=== PATIENT | male | born 1960 | race Two or more races ===

== ENCOUNTER 2024-07-20 09:19 | Outpatient (AMB) | payer MEDICAID, SELFPAY ==
[2024-07-20 10:06] VITALS: BP 127/83; PULSE 62; RESP 19; TEMP 36.6; O2SAT 97; BMI 43.0
--- NOTE | 2024-07-20 10:06 | ORTHONT_ITS ---
Vital signs 07/20/24 10:06 Height 1.75 m Height Method Stated Weight 131.995 kg Weight Measurement Method Standing Scale BMI 43.0 BP 127/83 Blood Pressure Source Automatic Cuff Blood Pressure Location Left Upper Arm Position Sitting Respiration 19 Pulse 62 Pulse Source Monitor Temp 97.8 F Temp Source Temporal Artery Scan Pulse Oximetry (%) 97 Oxygen Delivery Method Room Air Med/Allergies Allergies & Medications Allergies No Known Allergies Allergy (Verified 07/20/24 10:10) Medication Reconciliation atorvastatin 10 mg tablet 10 mg PO QDAY 07/20/24 [History Confirmed 07/20/24] cholecalciferol (vitamin D3) 10 mcg (400 unit) capsule 10 mcg PO QDAY 07/20/24 [History Confirmed 07/20/24] meloxicam 7.5 mg tablet 7.5 mg PO QDAY #45 tabs 07/20/24 [Rx] Exam Exam Patient is in no acute distress and is cooperative with the examination today. Breathing is nonlabored. Patient has a normal mood and affect. Bilateral extremities were evaluated and demonstrates sensation intact to light touch. Palpable pedal pulses are present. No significant edema is present. Bilateral hips were examined. The patient has no pain with log roll of the hips. Internal rotation to 30 degrees and external rotation to 30 degrees is painless. Negative FADIR. Right knee was examined today. The right knee is in reasonable alignment. Range of motion from 0-120 degrees. Knee is stable to varus and valgus as well as AP translation with <5mm. Patient has a negative McMurrays. There is no pain with patellofemoral compression and no crepitus noted. The knee is nontender to palpation. Left knee was examined today. The left knee is in varus alignment. Range of motion from 0-115 degrees. Knee is stable to varus and valgus as well as AP translation with <5mm. Patient has a negative McMurrays. There is no pain with patellofemoral compression and no crepitus noted. The knee is tender to palpation medially. We tried to open his disc. It was empty Assessment and Plan Problem List (1) Arthritis of left knee: Status: Acute Plan: Patient is a 63-year-old male with varus deformity and left knee arthritis. We discussed nonoperative and operative options. He reports that he is doing reasonably well right now. We will need to get x-rays to see what his knee looks like. I do suspect he has severe arthritis and varus deformity. We will see him back after his x-rays are done for possible injections versus continued conservative treatment. We sent him a prescription for meloxicam Office Procedures GNS Level of Care Nursing/Assessment Patient Status: Initial/New Patient Nursing Assessment/Reassesment: Medication Reconciliation, Update PMH in EMR and Vital Signs Coordination of Care: Complex Care and Chronic Disease 1-5, Education Complex Pt/Fam, Consent,records obtained, informed consent, 1 Ins Authorization, Lab and Imaging orders, Results/Orders obtained and Staff clarify orders New Patient Charge New Patient Point Assignment: 1124 New Patient Point Charge: REFRIGERATING TECHNICIAN Level 4 ([id number]) MA Intake Visit Data Collection New Patient or Established: New Patient (never been to [facility] [place]) Reason for Visit:: LEFT KNEE PAIN Seen by Clinical Staff ONLY (RN/MA): No Software Licensing Executive Required: No PCP or OBGYN visit in last 3 months: Yes Hx Now: No Do You Feel Safe at Home: Yes Authorities Contacted: N/A Questionairres Past Medical History Past Medical History Have you ever been diagnosed with any of the following: Cardiology Problems Hypercholesterolemia: Yes Subjective Visit Visit for: new patient and knee (LEFT) Immunization / Flu Flu Vaccine in the Last 12 Months: No Flu Vaccine Exclusion Criteria: Refused by Patient History of Present Illness Chief complaint: Left knee pain Randy is a 63-year-old male with left knee pain. The pain has been ongoing for several years.He has not had any injections Or anti-inflammatories. 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 The pain is on the medial aspect of the knee Pain Pain level (0-10): 8 Pain duration: ON AND OFF Pain location: inside (medial) Pain quality: sharp and dull Pain timing: night, increases with activity and stairs Associated signs & symptoms: numbness and other (specify) (TINGLING) Ambulatory data Ambulatory device: none Treatments Improvement with previous injections: No Number of Physical Therapy sessions: 12 Improvement with PT: No Improvement with NSAIDS: no Review of Systems Review of Systems: All systems negative unless otherwise noted in HPI.
== END 2024-07-20 10:35 | disposition home or self-care (01) ==
LOC: HODSRG 09:19
PROVIDERS: PCP Physician Assistant; Referring Provider Physician Assistant; Supervising Provider Orthopaedic Surgery Adult Reconstructive Orthopaedic Surgery; Visit Provider Orthopaedic Surgery Adult Reconstructive Orthopaedic Surgery
DX: M17.12 Unilateral primary osteoarthritis, left knee (principal); M21.162 Varus deformity, not elsewhere classified, left knee; E78.00 Pure hypercholesterolemia, unspecified
CPT/HCPCS: 99204; G0463

== ENCOUNTER → 2024-07-20 | Outpatient (CLI) | payer MEDICAID, SELFPAY ==
--- NOTE | 2024-07-20 | XR_ITS ---
Examination: Left knee 4 views TECHNIQUE: AP oblique lateral axial left knee 4 views Exam date and time: July 20, 2024 1234 hours INDICATIONS: Left knee pain beginning 6 months ago. FINDINGS: Advanced tricompartment osteoarthritis Severe narrowing [id number] medial joint space Small knee effusion No fracture No patellar dislocation IMPRESSION: Advanced tricompartment osteoarthritis Severe narrowing, [id number], medial joint space
== END | disposition home or self-care (01) ==
PROVIDERS: Referring Provider Orthopaedic Surgery Adult Reconstructive Orthopaedic Surgery; Visit Provider Orthopaedic Surgery Adult Reconstructive Orthopaedic Surgery
DX: M17.12 Unilateral primary osteoarthritis, left knee (principal); M25.862 Other specified joint disorders, left knee
CPT/HCPCS: 73564

== ENCOUNTER 2024-08-10 08:07 | Outpatient (AMB) | payer MEDICAID, SELFPAY ==
[2024-08-10 08:22] VITALS: BP 132/81; PULSE 66; RESP 18; TEMP 36.4; O2SAT 95; BMI 42.6
--- NOTE | 2024-08-10 08:22 | ORTHONT_ITS ---
Vital signs 08/10/24 08:22 Height 1.75 m Height Method Stated Weight 130.663 kg Weight Measurement Method Standing Scale BMI 42.6 BP 132/81 H Blood Pressure Source Automatic Cuff Blood Pressure Location Left Upper Arm Position Sitting Respiration 18 Pulse 66 Pulse Source Monitor Temp 97.6 F Temp Source Temporal Artery Scan Pulse Oximetry (%) 95 Oxygen Delivery Method Room Air Med/Allergies Allergies & Medications Allergies No Known Allergies Allergy (Verified 08/10/24 08:24) Medication Reconciliation atorvastatin 10 mg tablet 10 mg PO QDAY 07/20/24 [History Confirmed 08/10/24] cholecalciferol (vitamin D3) 10 mcg (400 unit) capsule 10 mcg PO QDAY 07/20/24 [History Confirmed 08/10/24] meloxicam 7.5 mg tablet 7.5 mg PO QDAY #45 tabs 07/20/24 [Rx Confirmed 08/10/24] Exam Exam Patient is in no acute distress and is cooperative with the examination today. Breathing is nonlabored. Patient has a normal mood and affect. Bilateral extremities were evaluated and demonstrates sensation intact to light touch. Palpable pedal pulses are present. No significant edema is present. Bilateral hips were examined. The patient has no pain with log roll of the hips. Internal rotation to 30 degrees and external rotation to 30 degrees is painless. Negative FADIR. Right knee was examined today. The right knee is in reasonable alignment. Range of motion from 0-120 degrees. Knee is stable to varus and valgus as well as AP translation with <5mm. Patient has a negative McMurrays. There is no pain with patellofemoral compression and no crepitus noted. The knee is nontender to palpation. Left knee was examined today. The left knee is in varus alignment. Range of motion from 0-115 degrees. Knee is stable to varus and valgus as well as AP translation with <5mm. Patient has a negative McMurrays. There is no pain with patellofemoral compression and no crepitus noted. The knee is tender to palpation medially. X-rays were reviewed from [facility] imaging. Demonstrates significant osteophytes and varus deformity. There is complete joint space obliteration medially Assessment and Plan Problem List (1) Arthritis of left knee: Status: Acute Plan: Patient is a 63-year-old male with varus deformity and left knee arthritis. We discussed nonoperative and operative options. He reports that he is doing reasonably well right now. He has severe arthritis and varus deformity. We will try an injection today. He is doing well with meloxicam Recommend knee cortisone injection as patient would like to proceed with conservative treatment at this time. The risks and benefits of the procedure were reviewed with the patient and patient gave verbal consent to continue with the procedure. Procedure: performed by Dr. Knight Using sterile technique the left knee was thoroughly prepped with alcohol, and approximately 1 cc of Kenalog 40 mg/mL and 4 cc of 1% lidocaine was injected without resistance into the medial tibial femoral joint space. The patient tolerated the procedure. Office Procedures GNS Level of Care Nursing/Assessment Patient Status: Established Patient Nursing Assessment/Reassesment: Medication Reconciliation, Update PMH in EMR and Vital Signs Coordination of Care: Complex Care and Chronic Disease 1-5, Education Complex Pt/Fam, Consent,records obtained, informed consent, Results/Orders obtained and Staff clarify orders Special Needs: Language special needs Established Patient Charge Established Patient Point Assignment: 95 Established Patient Point Charge: EP Level 3 (80-115) Surgical Proc/IM SQ injection Major Surgical Procedure: Yes (KNEE INJECTION ) Medication Given Medication Given Medication Given: Yes Documented Dose Given: 4 Route: Infiitration Medication Given Medication Given Medication Given: Yes Documented Dose Given: 1 Office Meds Xylocaine 10 mg/mL (1 %) injection solution Performing Provider: Claus Knight MD Performing Location: [facility] Administered by: Claus Knight MD on 08/10/24 08:44 Dose Route Admin Location Dispensed Lot Number Expiration Date [facility] Soil Field Technician 20 mL Infiltration 20 mL [id number] [facility] triamcinolone acetonide 40 mg/mL suspension for injection Performing Provider: Claus Knight MD Performing Location: [facility] Administered by: Claus Knight MD on 08/10/24 08:44 Dose Route Admin Location Dispensed Lot Number Expiration Date [facility] Soil Field Technician 40 mg intra-articular LEFT KNEE 1 mL [id number] 08/10/24 0697-6195-95 TEVA PARENTERAL MA Intake Visit Data Collection New Patient or Established: Established Patient (seen at [facility] within 3 years) Reason for Visit:: XRAY RESULTS/KNEE INJ Seen by Clinical Staff ONLY (RN/MA): No Land Surveyor Manager Required: Yes PCP or OBGYN visit in last 3 months: Yes Hx Now: No Do You Feel Safe at Home: Yes Authorities Contacted: N/A Questionairres Past Medical History Past Medical History Have you ever been diagnosed with any of the following: Cardiology Problems Hypercholesterolemia: Yes Subjective Visit Visit for: follow up visit, knee and x-rays Immunization / Flu Flu Vaccine in the Last 12 Months: No Flu Vaccine Exclusion Criteria: No Exclusion Criteria History of Present Illness Chief complaint: Left knee pain Randy is a 63-year-old male with left knee pain. The pain has been ongoing for several years.He has not had any injections Or anti-inflammatories. 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 The pain is on the medial aspect of the knee Pain Pain level (0-10): 5 Pain duration: ON AND OFF Pain location: inside (medial) Pain quality: aching Pain timing: increases with activity Associated signs & symptoms: none Ambulatory data Ambulatory device: none Treatments Improvement with previous injections: No Number of Physical Therapy sessions: 12 Improvement with PT: No Improvement with NSAIDS: no Review of Systems Review of Systems: All systems negative unless otherwise noted in HPI.
== END 2024-08-10 08:39 | disposition home or self-care (01) ==
LOC: HODSRG 08:07
PROVIDERS: PCP Physician Assistant; Referring Provider Physician Assistant; Supervising Provider Orthopaedic Surgery Adult Reconstructive Orthopaedic Surgery; Visit Provider Orthopaedic Surgery Adult Reconstructive Orthopaedic Surgery
DX: M17.12 Unilateral primary osteoarthritis, left knee (principal); M21.162 Varus deformity, not elsewhere classified, left knee; M25.562 Pain in left knee; E78.00 Pure hypercholesterolemia, unspecified
CPT/HCPCS: 20610; 99213; J3301; J3490; G0463

== ENCOUNTER 2024-11-09 08:41 | Outpatient (AMB) | payer MEDICAID, SELFPAY ==
[2024-11-09 09:02] VITALS: BP 109/71; PULSE 74; RESP 18; TEMP 36.9; O2SAT 96; BMI 41.1
--- NOTE | 2024-11-09 09:02 | PD.ORTHCLVIS ---
Vital signs 11/09/24 09:02 Height 1.75 m Height Method Stated Weight 125.758 kg Weight Measurement Method Standing Scale BMI 41.1 BP 109/71 Blood Pressure Source Automatic Cuff Blood Pressure Location Right Upper Arm Position Sitting Respiration 18 Pulse 74 Pulse Source Monitor Temp 98.4 F Temp Source Temporal Artery Scan Pulse Oximetry (%) 96 Oxygen Delivery Method Room Air Med/Allergies Allergies & Medications Allergies No Known Allergies Allergy (Verified 11/09/24 09:03) Medication Reconciliation atorvastatin 10 mg tablet 10 mg PO QDAY 07/20/24 [History Confirmed 11/09/24] cholecalciferol (vitamin D3) 10 mcg (400 unit) capsule 10 mcg PO QDAY 07/20/24 [History Confirmed 11/09/24] meloxicam 7.5 mg tablet 7.5 mg PO QDAY #45 tabs 07/20/24 [Rx Confirmed 11/09/24] Exam Exam Patient is in no acute distress and is cooperative with the examination today. Breathing is nonlabored. Patient has a normal mood and affect. Bilateral extremities were evaluated and demonstrates sensation intact to light touch. Palpable pedal pulses are present. No significant edema is present. Bilateral hips were examined. The patient has no pain with log roll of the hips. Internal rotation to 30 degrees and external rotation to 30 degrees is painless. Negative FADIR. Right knee was examined today. The right knee is in reasonable alignment. Range of motion from 0-120 degrees. Knee is stable to varus and valgus as well as AP translation with <5mm. Patient has a negative McMurrays. There is no pain with patellofemoral compression and no crepitus noted. The knee is nontender to palpation. Left knee was examined today. The left knee is in varus alignment. Range of motion from 0-115 degrees. Knee is stable to varus and valgus as well as AP translation with <5mm. Patient has a negative McMurrays. There is no pain with patellofemoral compression and no crepitus noted. The knee is tender to palpation medially. X-rays were reviewed from [facility] imaging. Demonstrates significant osteophytes and varus deformity. There is complete joint space obliteration medially Assessment and Plan Problem List (1) Arthritis of left knee: Status: Acute Plan: Patient is a 63-year-old male with varus deformity and left knee arthritis. We discussed nonoperative and operative options. He reports that he is doing reasonably well right now. He has severe arthritis and varus deformity. We will try an injection today. He is doing well with meloxicam Recommend knee cortisone injection as patient would like to proceed with conservative treatment at this time. The risks and benefits of the procedure were reviewed with the patient and patient gave verbal consent to continue with the procedure. Procedure: performed by Dr. Knight Using sterile technique the left knee was thoroughly prepped with alcohol, and approximately 1 cc of Kenalog 40 mg/mL and 4 cc of 1% lidocaine was injected without resistance into the medial tibial femoral joint space. The patient tolerated the procedure. Office Procedures GNS Level of Care Nursing/Assessment Patient Status: Established Patient Nursing Assessment/Reassesment: Medication Reconciliation, Update PMH in EMR and Vital Signs Coordination of Care: Complex Care and Chronic Disease 1-5, Education Complex Pt/Fam, Consent,records obtained, informed consent, Results/Orders obtained and Staff clarify orders Established Patient Charge Established Patient Point Assignment: 95 Established Patient Point Charge: EP Level 3 (80-115) Surgical Proc/IM SQ injection Major Surgical Procedure: Yes (KNEE INJECTION ) Medication Given Medication Given Medication Given: Yes Documented Dose Given: 4 Route: Infiitration Medication Given Medication Given Medication Given: Yes Documented Dose Given: 1 Route: Infiitration Office Meds Xylocaine 10 mg/mL (1 %) injection solution Performing Provider: Claus Knight MD Performing Location: [facility] Administered by: Claus Knight MD on 11/09/24 10:11 Dose Route Admin Location Dispensed Lot Number Expiration Date [facility] Professional Healthcare Representative 20 mL Infiltration KNEE 20 mL [id number] 02/22/28 [id number] [facility] triamcinolone acetonide 40 mg/mL suspension for injection Performing Provider: Claus Knight MD Performing Location: [facility] Administered by: Claus Knight MD on 11/09/24 10:11 Dose Route Admin Location Dispensed Lot Number Expiration Date [facility] Professional Healthcare Representative 40 mg intra-articular KNEE 1 mL [id number] 05/23/26 1824-8588-96 TEVA PARENTERAL MA Intake Visit Data Collection New Patient or Established: Established Patient (seen at [facility] within 3 years) Reason for Visit:: LT KNEE INJECTION Seen by Clinical Staff ONLY (RN/MA): No Rn Case Manager Hospice Required: No PCP or OBGYN visit in last 3 months: Yes Hx Now: No Do You Feel Safe at Home: Yes Authorities Contacted: N/A Questionairres Past Medical History Past Medical History Have you ever been diagnosed with any of the following: Cardiology Problems Hypercholesterolemia: Yes Subjective Visit Visit for: follow up visit and knee (LEFT KNEE ) Immunization / Flu Flu Vaccine in the Last 12 Months: Yes Flu Vaccine Exclusion Criteria: Already Received History of Present Illness Chief complaint: Left knee pain Randy is a 63-year-old male with left knee pain. The pain has been ongoing for several years.He has not had any injections Or anti-inflammatories. 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 The pain is on the medial aspect of the knee. The pain has improved significantly with the last injections and weight loss. He would like another injection today Personal History Red flag PMH: none Pain Pain level (0-10): 2 Pain duration: 3 MONTHS Pain location: anterior Pain quality: dull Pain timing: increases with activity (WHILE EXERSICE ) Associated signs & symptoms: none Ambulatory data Ambulatory device: none Walking distance (minutes): 20 (WORKING OUT ) Treatments Number of previous injections: 1 Improvement with previous injections: Yes Number of Physical Therapy sessions: 7 Improvement with PT: Yes Improvement with NSAIDS: n/a Review of Systems Review of Systems: All systems negative unless otherwise noted in HPI.
== END 2024-11-09 09:41 | disposition home or self-care (01) ==
LOC: HODSRG 08:41
PROVIDERS: PCP Physician Assistant; Referring Provider Physician Assistant; Supervising Provider Orthopaedic Surgery Adult Reconstructive Orthopaedic Surgery; Visit Provider Orthopaedic Surgery Adult Reconstructive Orthopaedic Surgery
DX: M17.12 Unilateral primary osteoarthritis, left knee (principal); M21.162 Varus deformity, not elsewhere classified, left knee; M25.562 Pain in left knee; E78.00 Pure hypercholesterolemia, unspecified
CPT/HCPCS: 20610; 99213; J3301; J3490; G0463